=== PATIENT | male | born 1960 | race Caucasian/White ===

== ENCOUNTER 2018-08-08 17:54 | Emergency (ER) | payer BC, OTHER ==
--- NOTE | 2018-08-08 18:16 | PDOC ---
Rapid Medical Evaluation Chief Complaint: Pain Time Seen by Provider: 08/08/18 18:14 Medical Evaluation: Allergies Allergy/AdvReac Type Severity Reaction Status Date / Time No Known Allergies Allergy Verified 10/10/15 07:42 08/08/18 18:14 I did a brief in person evaluation on this patient. CC: Abdominal pain HPI: abd pain x 3 weeks. No hx of abd surgeries. Pt states he was febrile at home. PE: Skin: Clear Lungs: Clear Heart:RRR Abd: soft, tender on the left side of the abdomen. MS: Moves all extremities without difficulty Neuro: alert Psych: appropriate affect. I have ordered: abd protocol Pt will proceed to main ED for further evaluation. Discharge Disposition - Diagnosis Abdominal pain Qualifiers: Abdominal location: left lower quadrant Qualified Code(s): R10.32 - Left lower quadrant pain - Referrals - Patient Instructions - Post Discharge Activity
[2018-08-08 18:17] VITALS: BMI 37.3
[2018-08-08 19:21] LABS: BASO % 0.2 % (0-2.0); HEMOGLOBIN 16.4 GM/dL (11.7-16.9); LYMPH % 7.5 % (8-40); MCH 30.2 pg (25.7-33.7); MCHC 33.6 g/dl (32.0-35.9); MEAN CELL VOLUME 89.8 fl (80-96); MEAN PLT VOLUME 9.1 fl (7.5-11.1); MONO % 5.4 % (3.8-10.2); NEUT % 85.9 % (42.8-82.8); PLATELET COUNT 267 K/MM3 (134-434); RBC 5.45 M/mm3 (4.00-5.60); RDW 13.6 % (11.9-15.9); WHITE BLOOD COUNT 13.9 K/mm3 (4.0-10.0)
[2018-08-08 19:49] LABS: ALK PHOS 85 U/L (45-117); ANION GAP 8 MMOL/L (8-16); BILIRUBIN,TOTAL 1.6 mg/dL (0.2-1); BLOOD UREA NITROGEN 21 mg/dL (7-18); CALCIUM 8.9 mg/dL (8.5-10.1); CHLORIDE 104 mmol/L (98-107); CO2 27 mmol/L (21-32); CREATININE 0.9 mg/dL (0.55-1.3); GLUCOSE,RANDOM 107 mg/dL (74-106); LIPASE 109 U/L (73-393); POTASSIUM 4.4 mmol/L (3.5-5.1); SGOT/AST 30 U/L (15-37); SGPT/ALT 37 U/L (13-61); SODIUM 139 mmol/L (136-145); TOT PROT 7.8 g/dl (6.4-8.2)
--- NOTE | 2018-08-08 22:13 | PDOC ---
*Physical Exam - Vital Signs Last Vital Signs Temp Pulse Resp BP Pulse Ox 99.7 F H 94 H 16 114/78 97 08/08/18 18:15 08/08/18 18:15 08/08/18 18:15 08/08/18 18:15 08/08/18 18:15 ED Treatment Course - LABORATORY CBC & Chemistry Diagram: 08/08/18 18:55 08/08/18 18:56 - ADDITIONAL ORDERS Additional order review: Laboratory Results 08/08/18 18:56 Sodium 139 Potassium 4.4 Chloride 104 Carbon Dioxide 27 Anion Gap 8 BUN 21 H Creatinine 0.9 Creat Clearance w eGFR 86.37 Random Glucose 107 H Calcium 8.9 Total Bilirubin 1.6 H AST 30 ALT 37 Alkaline Phosphatase 85 Total Protein 7.8 Albumin 4.0 Lipase 109 08/08/18 18:55 RBC 5.45 MCV 89.8 MCHC 33.6 RDW 13.6 MPV 9.1 Neutrophils % 85.9 H Lymphocytes % 7.5 L D Monocytes % 5.4 Eosinophils % 1.0 Basophils % 0.2 Medical Decision Making - Medical Decision Making 08/08/18 22:11 Patient seen by the advanced practice provider under my direct supervision. Ancillary testing reviewed as necessary. I agree with plan as outlined by the advanced practice provider. *DC/Admit/Observation/Transfer Diagnosis at time of Disposition: Abdominal pain Qualifiers: Abdominal location: left lower quadrant Qualified Code(s): R10.32 - Left lower quadrant pain - Discharge Dispostion Condition at time of disposition: Stable - Referrals Referrals: Rey Campos MD [Primary Care Provider] - - Patient Instructions - Post Discharge Activity
[2018-08-08] MEDS ORDERED: SODIUM CHLORIDE 1,000 ML IV STA (22:17)
--- NOTE | 2018-08-08 22:19 | PDOC ---
History of Present Illness - General Chief Complaint: Pain Stated Complaint: SENT BY FOR CAT SCAN Time Seen by Provider: 08/08/18 18:14 - History of Present Illness Initial Comments: 08/08/18 22:15 58 year old male with pain to the abdomen for x 2.5 weeks ago with bilious vomiting today. patient reports that he was on a special diet for weight loss ( high protein diet) now off diet. pmhx: hypertension Past History - Past Medical History Allergies/Adverse Reactions: Allergies Allergy/AdvReac Type Severity Reaction Status Date / Time No Known Allergies Allergy Verified 10/10/15 07:42 Home Medications: Ambulatory Orders Atorvastatin Ca [Lipitor] 10 mg PO HS 09/16/15 Dulaglutide [Trulicity] 1.5 mg SQ WEEKLY 09/16/15 Escitalopram Oxalate [Lexapro -] 10 mg PO DAILY 09/16/15 Hydrochlorothiazide [Hctz -] 12.5 mg PO DAILY 09/16/15 Nebivolol HCl [Bystolic] 10 mg PO DAILY 09/16/15 Zolpidem Tartrate 5 mg PO ASDIR 09/16/15 metFORMIN HCL [Metformin ER Osmotic] 1,000 mg PO BID 09/16/15 Naproxen Sodium [Aleve] 220 mg PO ASDIR #0 09/17/15 Aspirin [Aspirin EC] 81 mg PO DAILY 10/08/15 Oxycodone HCl/Acetaminophen [Percocet 5-325 mg Tablet] 1 - 2 tab PO Q6H #20 tablet MDD 8 10/10/15 Anemia: No Asthma: No Cancer: No Cardiac Disorders: No CVA: No COPD: No CHF: No Dementia: No Diabetes: Yes GI Disorders: No Disorders: No HTN: No Hypercholesterolemia: No Liver Disease: No Seizures: No Thyroid Disease: No - Surgical History Abdominal Surgery: No Appendectomy: No Cardiac Surgery: No Cholecystectomy: No Lung Surgery: No Neurologic Surgery: No Orthopedic Surgery: Yes (RIGHT ELBOW RADIAL HEAD REATTACHMENT, OPEN LEFT SHOULDER RTC,BILAT KNEE AR) - Immunization History Immunization Up to Date: No - Suicide/Smoking/Psychosocial Hx Smoking Status: Yes Smoking History: Current some day smoker Have you smoked in the past 12 months: Yes Number of Cigarettes Smoked Daily: 2 Cigars Per Day: 2 Information on smoking cessation initiated: No 'Breaking Loose' booklet given: 10/10/15 Hx Alcohol Use: No Drug/Substance Use Hx: No Substance Use Type: None Hx Substance Use Treatment: No Review of Systems - Review of Systems Able to Perform ROS?: Yes Is the patient limited Georgian proficient: No Constitutional: Yes: Fever ABD/GI: Yes: Nausea, Vomiting *Physical Exam - Vital Signs Last Vital Signs Temp Pulse Resp BP Pulse Ox 99.7 F H 94 H 16 114/78 97 08/08/18 18:15 08/08/18 18:15 08/08/18 18:15 08/08/18 18:15 08/08/18 18:15 - Physical Exam General Appearance: Yes: Appropriately Dressed Respiratory/Chest: positive: Lungs Clear, Normal Breath Sounds Cardiovascular: positive: Regular Rate, Tachycardia Gastrointestinal/Abdominal: positive: Normal Bowel Sounds, Tender (LUQ/ LLQ pain ), Soft Musculoskeletal: positive: Normal Inspection. negative: CVA Tenderness Extremity: positive: Normal Capillary Refill, Normal Inspection, Normal Range of Motion Neurologic: positive: Fully Oriented, Alert ED Treatment Course - LABORATORY CBC & Chemistry Diagram: 08/08/18 18:55 08/08/18 18:56 - ADDITIONAL ORDERS Additional order review: Laboratory Results 08/08/18 18:56 Sodium 139 Potassium 4.4 Chloride 104 Carbon Dioxide 27 Anion Gap 8 BUN 21 H Creatinine 0.9 Creat Clearance w eGFR 86.37 Random Glucose 107 H Calcium 8.9 Total Bilirubin 1.6 H AST 30 ALT 37 Alkaline Phosphatase 85 Total Protein 7.8 Albumin 4.0 Lipase 109 08/08/18 18:55 RBC 5.45 MCV 89.8 MCHC 33.6 RDW 13.6 MPV 9.1 Neutrophils % 85.9 H Lymphocytes % 7.5 L D Monocytes % 5.4 Eosinophils % 1.0 Basophils % 0.2 - RADIOLOGY Radiology Studies Ordered: Category Date Time Status ABDOMEN & PELVIS CT WITH CONTR [CT] Stat CT Scan 08/08/18 22:14 Ordered Progress Note - Progress Note Progress Note: A: abdominal pain P: labs CTAP: cholelithiaisis likely enteritis? ABDominal US. cholethiasis Medical Decision Making - Medical Decision Making 08/09/18 02:17 Abdominal US: Cholelithiasis Mild hepatomegaly with fatty infiltration *DC/Admit/Observation/Transfer Diagnosis at time of Disposition: Abdominal pain Qualifiers: Abdominal location: left lower quadrant Qualified Code(s): R10.32 - Left lower quadrant pain - Discharge Dispostion Disposition: HOME Condition at time of disposition: Stable - Referrals Referrals: Rey Campos MD [Primary Care Provider] - Call tomorrow - Patient Instructions Printed Discharge Instructions: DI for Abdominal Pain-Adult Additional Instructions: Drink plenty of fluids. Please follow-up with your primary doctor. Return to the emergency room for any worsening symptoms. - Post Discharge Activity Forms/Work/School Notes: Back to Work
[2018-08-08 22:47] LABS: URINE APPEARANCE CLEAR; URINE BILIRUBIN NEGATIVE (NEGATIVE); URINE COLOR YELLOW; URINE GLUCOSE (UA) NEGATIVE (NEGATIVE); URINE KETONE TRACE (NEGATIVE); URINE LEUK ESTERASE NEGATIVE (NEGATIVE); URINE NITRITE NEGATIVE (NEGATIVE); URINE PROTEIN NEGATIVE (NEGATIVE); URINE UROBILINOGEN 0.2 mg/dL (0.2-1.0)
[2018-08-08] MEDS ORDERED: ONDANSETRON 4 MG/2 ML VIAL IVPUSH ONE (23:35)
[2018-08-09] MEDS ORDERED: ONDANSETRON 4 MG/2 ML VIAL ONE (00:55)
[2018-08-09] MEDS ORDERED: ACETAMINOPHEN 1000 MG/100 ML VIAL (NON FORMULARY) IVPB ONE (02:00)
[2018-08-09] MEDS ORDERED: ACETAMINOPHEN INJECTION 100 ML IVPB ONE (02:29)
[2018-08-09 02:41] VITALS: PULSE 91; TEMP 99.1
[2018-08-09] MEDS ORDERED: METOCLOPRAMIDE HCL INJECTION 10 MG/2 ML VIAL IVPB ONE (02:57)
[2018-08-09] MEDS ORDERED: METOCLOPRAMIDE HCL INJECTION 10 MG/2 ML VIAL ONE (03:06)
[2018-08-09 04:00] VITALS: BP 105/60
== END 2018-08-09 04:00 | disposition home or self-care (01) ==
LOC: JER 17:54
PROC: 3E0337Z Introduction of Electrolytic and Water Balance Substance into Peripheral Vein, Percutaneous Approach (ICD-10-PCS; principal; 2018-08-08)
PROC: 3E033GC Introduction of Other Therapeutic Substance into Peripheral Vein, Percutaneous Approach (ICD-10-PCS; 2018-08-08)
PROC: 3E033GC Introduction of Other Therapeutic Substance into Peripheral Vein, Percutaneous Approach (ICD-10-PCS; 2018-08-08)
PROC: 3E033NZ Introduction of Analgesics, Hypnotics, Sedatives into Peripheral Vein, Percutaneous Approach (ICD-10-PCS; 2018-08-08)
DX: R10.32 Left lower quadrant pain (principal); K80.20 Calculus of gallbladder without cholecystitis without obstruction; E11.9 Type 2 diabetes mellitus without complications; Z79.84 Long term (current) use of oral hypoglycemic drugs
CPT/HCPCS: 36415; 74177-TC; 76705-TC; 80053; 81003; 83605; 83690; 85025; 87040; 99283-25; J0131; J7030

== ENCOUNTER 2018-12-22 06:28 | Day surgery (SDC) | payer OTHER ==
[2018-12-11 14:39] VITALS: BMI 39.3
[~2018-12-22 06:28] MED LIST: CELECOXIB 200 MG CAPSULE PO ONE; ROPIVICAINE 0.2%/MORPH PF/KETOROLAC - 51ML DISP.SYRINGE IA ONE; TRANEXAMIC ACID 1000 MG/10 ML VIAL IVPUSH ONE
[2018-12-22] MEDS ORDERED: MIDAZOLAM HCL 2 MG/2 ML SINGLE DOSE VIAL ONE ×2 (07:04→08:18)
[2018-12-22] MEDS ORDERED: ROPIVACAINE HCL 0.5% 30ML VIAL ONE (07:04)
[2018-12-22] MEDS ORDERED: BUPIVACAINE HCL/PF 0.5% (5MG/ML) 10 ML VIAL ONE (07:11)
[2018-12-22] MEDS ORDERED: ONDANSETRON 4 MG/2 ML VIAL ONE (07:13)
[2018-12-22] MEDS ORDERED: DEXAMETHASONE SOD PHOSPHATE 4 MG/1 ML VIAL ONE (07:13)
[2018-12-22] MEDS ORDERED: KETOROLAC TROMETHAMINE 30 MG/1 ML VIAL ONE (07:13)
[2018-12-22] MEDS ORDERED: ceFAZolin SODIUM 1 GM VIAL ONE ×3 (07:13→08:00)
[2018-12-22] MEDS ORDERED: PROPOFOL 20 ML ONE ×2 (07:14)
[2018-12-22] MEDS ORDERED: SUCCINYLCHOLINE CHLORIDE 200 MG/10 ML SYRINGE ONE (07:14)
[2018-12-22] MEDS ORDERED: VANCOMYCIN 1,000 MG VIAL (RESTRICTED TO ID ONLY) ONE (07:18)
[2018-12-22] MEDS ORDERED: GELATIN, ABSORBABLE 12-7MM EACH SPONGE TP ONE ×3 (07:39→09:11)
[2018-12-22] MEDS ORDERED: THROMBIN (RECOMBINANT) 5,000 UNIT VIAL TP ONE (07:39)
[2018-12-22] MEDS ORDERED: CEFAZOLIN 3 GM in DEXTROSE 5%-WATER - 50 ML IVPB ONE (08:00)
--- NOTE | 2018-12-22 08:00 | HP ---
Satellite [facility] - Chief Complaint Chief Complaint: left knee pain - Past Medical History Allergies/Adverse Reactions: Allergies Allergy/AdvReac Type Severity Reaction Status Date / Time No Known Allergies Allergy Verified 12/11/18 14:24 - Current Medications Current Medications: Home Medications Medication Instructions Recorded Atorvastatin Ca [Lipitor] 10 mg PO HS 09/16/15 Dulaglutide [Trulicity] 1.5 mg SQ WEEKLY 09/16/15 Escitalopram Oxalate [Lexapro -] 10 mg PO DAILY 09/16/15 Nebivolol HCl [Bystolic] 10 mg PO BID 09/16/15 Zolpidem Tartrate 5 mg PO ASDIR 09/16/15 metFORMIN HCL [Metformin ER 1,000 mg PO BID 09/16/15 Osmotic] Naproxen Sodium [Aleve] 220 mg PO ASDIR #0 09/17/15 Linagliptin [Tradjenta] 5 mg PO DAILY 12/11/18 Ibuprofen 400 mg PO ASDIR PRN 12/22/18 Satellite Physical Exam - Physical Examination Vital Signs: Vital Signs Period Temp Pulse Resp BP Sys/Elias Pulse Ox Last 24 Hr 99.3 F 88 18 118/78 96 General Appearance: Well Nourished, Well Developed, Alert & Oriented x3 ENT: Clear Lung: Normal air movement Heart: Regular rate & rhythm Extremities: Other (left knee- + swelling, + ttp medially, decr rom, nvi, xrays show grade 4 medial djd) Neurological: Intact, Alert, Oriented Satellite Impression/Plan - Impression/Plan Impression: left knee medial djd Operative Procedure: left medial joel ukr Date to be Performed: 12/22/18
[2018-12-22] MEDS ORDERED: THROMBIN (BOVINE) 5,000 UNIT VIAL TP ONE (09:11)
[2018-12-22] MEDS ORDERED: ROPIVICAINE 0.2%/MORPH PF/KETOROLAC - 51ML DISP.SYRINGE IA ONE (09:25)
[2018-12-22] MEDS ORDERED: MAG HYDROX/AL HYDROX/SIMETH 30 ML UNIT-DOSE CUP PO PRN (09:49)
--- NOTE | 2018-12-22 09:52 | OP ---
Operative Note - Note: Operative Date: 12/22/18 (jude) Pre-Operative Diagnosis: left knee medial djd Operation: left medial joel ukr Post-Operative Diagnosis: Same as Pre-op Surgeon: Dakota Thompson Tint Layer: Manoj Burns Anesthesiologist/WARP DRAWER: Jason Dumont Anesthesia: Spinal, Local Specimens Removed: bone fragments Estimated Blood Loss (mls): 100 Operative Report Dictated: Yes
[2018-12-22] MEDS ORDERED: ESCITALOPRAM OXALATE 10 MG TABLET (FP) PO SCH (10:00)
[2018-12-22] MEDS ORDERED: MULTIVITAMINS (DAILY MVI) TABLET (FP) PO SCH (10:00)
[2018-12-22] MEDS ORDERED: PATIENT'S OWN MEDICATION (NON-FORMULARY) (Dulaglutide [Trulicity] 1.5 MG) SQ SCH (10:00)
[2018-12-22] MEDS ORDERED: PATIENT'S OWN MEDICATION (NON-FORMULARY) (Linagliptin [Tradjenta] 5 MG) PO SCH (10:00)
[2018-12-22] MEDS ORDERED: PATIENT'S OWN MEDICATION (NON-FORMULARY) (Metformin Hcl [Metformin Er Osmotic] 1,000 MG) PO SCH (10:00)
[2018-12-22] MEDS ORDERED: LACTATED RINGERS SOLUTION 1,000 ML IV SCH (10:00)
[2018-12-22] MEDS ORDERED: PANTOPRAZOLE 40 MG TABLET (FP) PO SCH (10:00)
[2018-12-22] MEDS ORDERED: ONDANSETRON 4 MG/2 ML VIAL IVPUSH PRN (10:42)
[2018-12-22] MEDS ORDERED: oxyCODONE HCL 5 MG TABLET PO PRN (10:42)
[2018-12-22] MEDS ORDERED: PROMETHAZINE HCL 25 MG/1 ML VIAL IVPUSH PRN (10:42)
[2018-12-22] MEDS ORDERED: ACETAMINOPHEN 325 MG TABLET (FP) PO SCH (10:45)
[2018-12-22] MEDS ORDERED: INSULIN SLIDING SCALE (NOVOLOG) 1 VIAL SQ SCH (11:00)
--- NOTE | 2018-12-22 11:08 | SPEC ---
DATE OF OPERATION: 12/22/2018 PREOPERATIVE DIAGNOSIS: Degenerative joint disease, left knee. POSTOPERATIVE DIAGNOSIS: Degenerative joint disease, left knee. PROCEDURE: Left medial unicompartmental knee replacement with robotic-assisted navigation (MAKOplasty) and patelloplasty. SURGICAL ATTENDING: Dakota Thompson MD PUBLIC ADMINISTRATION TEACHER: GENESIS Veras ANESTHESIA: Regional and spinal. CLOSURE: Medial CHRISTINE components with a 7 femur, 7 tibia, 8 polyethylene; No. 1 Vicryl, fascia; 0 and 2-0, subcutaneous; 3-0 Monocryl subcuticular with skin glue for skin; 4-0 undyed Vicryl for pin sites. ESTIMATED BLOOD LOSS: Less than 50 mL. COMPLICATIONS: None. CONDITION: To recovery in stable condition. DESCRIPTION OF OPERATIVE PROCEDURE: Patient was taken to the operating room on December 22, 2018. Spinal and regional anesthesia was administered by the anesthesiologist. IV Kefzol and TXA were administered prophylactically prior to the case. A well-padded pneumatic tourniquet was placed on the left proximal thigh. The left lower extremity was prepped and draped in the usual sterile fashion. A 6- to 8-cm longitudinal incision over the medial side of the patella from mid patella to the tibial tubercle was incised and was deepened using Bovie cautery. An arthrotomy was then made just medial to the patellar tendon and the patella. Subperiosteal dissection was done on the anteromedial proximal tibia all the way back to the MCL. Partial fat pad excision was performed, exposing the medial compartment. Checkpoint was malleable at both the femur and the tibia. Using 2 stab incisions in the femur 1 handbreadth above the patella on the femur and 2 stab incisions 1 handbreadth below the tibial tubercle on the tibia, 2 threaded pins were drilled in parallel fashion from anterior to posterior, going through the proximal cortex and engaging the 2nd but not through the 2nd cortex. To these threaded pins were fastened navigation rays, 1 on the femur and 1 on the tibia. The knee was then registered with the navigation device with the center of the rotation of the hip, medial and lateral malleoli, and multiple points both on the femur and on the tibia. Excellent registration of less than 0.5 mm was obtained on both to ensure adequate registration. The navigation device ensured us to "pop the bubbles" both on the femur and the tibia and that was performed and passed registration. The knee was then thoroughly inspected to remove all osteophytes both on the femur and the tibia. Also, osteophytes on the trochlea and on the surface of the patella were removed as well. The knee was then stressed with valgus stress at 0, 30, 60, 90, and 120 degrees of flexion. This propagated a looseness/tightness graft. The virtual positions of the components were then optimized to ensure an excellent graft. The tracking also was optimized by manipulating the virtual position to ensure that the femoral component articulated with the central portion of the tibial component. The robot was then brought into the field and was registered. The robot was used to bur the bone on both the femur and the tibia as to the specifications of the components. The trial components were then applied on both the femur and the tibia with an appropriate polyethylene insert. The knee was taken through a range of motion and found to have full extension, full flexion, with excellent stability. Stressing the graft revealed an excellent looseness/tightness graft with the trial components in place. The trial components were removed. The knee was thoroughly irrigated with a copious amount of antibiotic irrigation. The real components were then cemented in using modern generation cement techniques with antibiotic cement and pressurization. After the cement was hardened, the knee was thoroughly inspected to remove out all excess cement. The real polyethylene insert was then clipped into place. Range of motion and stability were again assessed to be as they were with the trials. At this time, the pins and the checkpoints were removed. The knee was again thoroughly irrigated. The arthrotomy was closed with No. 1 Vicryl, 0 and 2-0 subcutaneous, and 3-0 Monocryl subcuticular with skin glue for the skin, 4-0 undyed Vicryl for the pin sites. Sterile pressure dressing was placed over the knee. Patient awakened from anesthesia and transferred to recovery in stable condition. No complications. Estimated blood loss negligible. X-rays postoperatively revealed excellent position of the components. Alondra [id number]
[2018-12-22] MEDS: oxyCODONE HCL 5 MG TABLET PO PRN ×2 (15:42→20:16)
[2018-12-22] MEDS: ceFAZolin SODIUM 1 GM VIAL IVPB SCH (15:46)
[2018-12-22] MEDS ORDERED: CEFAZOLIN 3 GM in DEXTROSE 5%-WATER - 50 ML IVPB SCH (16:00)
--- NOTE | 2018-12-22 17:15 | PN ---
Progress Note, Physician Chief Complaint: patient s/p Cait ambulating hallways bgm in 400's take metformin and trulicty at home - Current Medication List Current Medications: Active Medications Acetaminophen (Tylenol -) 650 mg PO Q6H [facility] Stop: 12/25/18 17:59 Al Hydroxide/Mg Hydroxide (Mylanta Oral Suspension -) 30 ml PO Q4H PRN PRN Reason: DYSPEPSIA Aspirin (Asa -) 325 mg PO DAILY@0800 [facility] Atorvastatin Calcium (Lipitor -) 10 mg PO HS [facility] Cefazolin Sodium (Ancef -) 3 gm IVPB Q8H [facility] Stop: 12/23/18 00:01 Last Admin: 12/22/18 15:46 Dose: 3 gm Escitalopram Oxalate (Lexapro -) 10 mg PO DAILY [facility] Fentanyl (Sublimaze Injection -) 50 mcg IVPUSH [id number] PRN PRN Reason: PAIN-PACU ORDER X 4 DOSES ONLY Last Admin: 12/22/18 11:09 Dose: 50 mcg Lactated Ringer's (Lactated Ringers Solution) 1,000 mls @ 125 mls/hr IV ASDIR [facility] Stop: 12/23/18 06:00 Insulin Aspart (Novolog Vial Sliding Scale -) 1 vial SQ [facility]; Protocol Last Admin: 12/22/18 15:45 Dose: Not Given Metformin HCl (Glucophage Xr -) 1,000 mg PO BIDI [facility] Last Admin: 12/22/18 15:46 Dose: 1,000 mg Multivitamins/Minerals/Vitamin C (Tab-A-Vit -) 1 tab PO DAILY [facility] Nebivolol (Bystolic -) 10 mg PO BID [facility] Non-Formulary Medication (Dulaglutide [Trulicity]) 1.5 mg SQ Mo [facility] Ondansetron HCl (Zofran Injection) 4 mg IVPUSH Q6H PRN PRN Reason: NAUSEA AND/OR VOMITING Oxycodone HCl (Roxicodone -) 5 mg PO Q3H PRN PRN Reason: PAIN LEVEL 1-5 Last Admin: 12/22/18 11:10 Dose: 5 mg Oxycodone HCl (Roxicodone -) 10 mg PO Q3H PRN PRN Reason: PAIN LEVEL 6-10 Last Admin: 12/22/18 15:42 Dose: 10 mg Oxycodone HCl (Oxycontin -) 10 mg PO BID [facility] Stop: 12/25/18 10:43 Pantoprazole Sodium (Protonix -) 40 mg PO DAILY [facility] Promethazine HCl (Phenergan Injection -) 12.5 mg IVPUSH Q6H PRN PRN Reason: NAUSEA-FOR RESCUE AFTER 15 MIN Senna/Docusate Sodium (Pericolace -) 2 tablet PO BID [facility] Sitagliptin Phosphate (Januvia -) 100 mg PO ACBK [facility] Zolpidem Tartrate (Ambien -) 5 mg PO HS PRN PRN Reason: INSOMNIA - Objective Vital Signs: Vital Signs Temperature 97.8 F 12/22/18 14:05 Pulse Rate 81 12/22/18 14:05 Respiratory Rate 17 12/22/18 14:05 Blood Pressure 114/65 12/22/18 14:05 O2 Sat by Pulse Oximetry (%) 94 L 12/22/18 14:06 Constitutional: Yes: Calm Cardiovascular: Yes: Regular Rate and Rhythm, S1, S2 Respiratory: Yes: CTA Bilaterally Gastrointestinal: Yes: Normal Bowel Sounds, Soft, Abdomen, Obese Extremities: Yes: Other (left knee dressing) Problem List - Problems (1) Diabetes Assessment/Plan: metfromin 1000mg po bid sliding scale adjusted Code(s): E11.9 - TYPE 2 DIABETES MELLITUS WITHOUT COMPLICATIONS Qualifiers: Diabetes mellitus type: type 2 (2) Left knee DJD Assessment/Plan: s/p Cait pain control dvt ppx Code(s): M17.12 - UNILATERAL PRIMARY OSTEOARTHRITIS, LEFT KNEE (3) HLD (hyperlipidemia) Assessment/Plan: statin Code(s): E78.5 - HYPERLIPIDEMIA, UNSPECIFIED
[2018-12-22] MEDS ORDERED: ACETAMINOPHEN 325 MG TABLET (FP) ONE (20:15)
[2018-12-22] MEDS: ACETAMINOPHEN 325 MG TABLET (FP) PO SCH (20:15)
[2018-12-22] MEDS: NEBIVOLOL 10 MG TABLET (FP) PO SCH (21:44)
[2018-12-22] MEDS: SENNOSIDES/DOCUSATE COMBO (SENNA PLUS) TABLET (UD) PO SCH (21:44)
[2018-12-22] MEDS: oxyCODONE HCL 10 MG SUSTAINED ACTING TABLET PO SCH (21:45)
[2018-12-22] MEDS: INSULIN SLIDING SCALE (NOVOLOG) 1 VIAL SQ SCH (21:51)
[2018-12-22] MEDS ORDERED: ZOLPIDEM TARTRATE 5 MG TABLET PO PRN (22:00)
[2018-12-22] MEDS ORDERED: ATORVASTATIN CA 10 MG TABLET (FP) PO SCH (22:00)
[2018-12-23] MEDS: ceFAZolin SODIUM 1 GM VIAL IVPB SCH (00:17)
[2018-12-23] MEDS: ACETAMINOPHEN 325 MG TABLET (FP) PO SCH ×2 (00:18→06:14)
[2018-12-23] MEDS: oxyCODONE HCL 5 MG TABLET PO PRN (05:30)
[2018-12-23] MEDS ORDERED: sitaGLIPtin PHOSPHATE 50 MG TABLET PO SCH (07:00)
[2018-12-23] MEDS: INSULIN SLIDING SCALE (NOVOLOG) 1 VIAL SQ SCH ×2 (07:19→11:54)
[2018-12-23] MEDS ORDERED: ASPIRIN 325 MG TABLET PO SCH (08:00)
[2018-12-23 09:34] VITALS: BP 122/70; PULSE 88; TEMP 97.9
[2018-12-23] MEDS: oxyCODONE HCL 10 MG SUSTAINED ACTING TABLET PO SCH (10:53)
[2018-12-23] MEDS: NEBIVOLOL 10 MG TABLET (FP) PO SCH ×2 (10:53→10:54)
[2018-12-23] MEDS: SENNOSIDES/DOCUSATE COMBO (SENNA PLUS) TABLET (UD) PO SCH (10:54)
[2018-12-23 11:25] LABS: BASO % 1.9 % (0-2.0); EOS % 0.7 % (0-4.5); HEMATOCRIT 46.4 % (35.4-49); HEMOGLOBIN 15.7 GM/dl (11.7-16.9); LYMPH % 11.3 % (8-40); MCH 30.4 pg (25.7-33.7); MCHC 33.8 g/dl (32.0-35.9); MEAN CELL VOLUME 89.8 fl (80-96); MEAN PLT VOLUME 8.9 fl (7.5-11.1); MONO % 8.3 % (3.8-10.2); NEUT % 77.8 % (42.8-82.8); PLATELET COUNT 334 K/MM3 (134-434); RBC 5.16 M/mm3 (4.00-5.60); RDW 12.3 % (11.9-15.9); WHITE BLOOD COUNT 19.3 K/mm3 (4.0-10.8)
[2018-12-23 11:54] LABS: ALBUMIN 3.9 g/dl (3.4-5.0); BILIRUBIN,TOTAL 1.3 mg/dl (0.2-1); CALCIUM 9.6 mg/dl (8.5-10); CREATININE 0.9 mg/dl (0.55-1.3); POTASSIUM 4.5 mmol/L (3.5-5.1); TOT PROT 7.1 g/dl (6.4-8.2)
== END 2018-12-23 12:26 | disposition home health service (06) ==
LOC: FM/S 06:28 → FASUSAT 06:28
PROVIDERS: ATTEND Orthopaedic Surgery
PROC: 8E0YXBZ Computer Assisted Procedure of Lower Extremity (ICD-10-PCS; 2018-12-22)
PROC: 8E0Y0CZ Robotic Assisted Procedure of Lower Extremity, Open Approach (ICD-10-PCS; 2018-12-22)
PROC: 0SRD0L9 Replacement of Left Knee Joint with Medial Unicondylar Synthetic Substitute, Cemented, Open Approach (ICD-10-PCS; principal; 2018-12-22 08:27)
DX: M17.12 Unilateral primary osteoarthritis, left knee (principal)
CPT/HCPCS: 20985; 27446; C1776; S2900; 36415; 73560-TC-LT-FY; 80053; 82962; 85025; 94760; 97116-GP; 97162-GP

== ENCOUNTER 2020-06-30 13:49 | Emergency (ER) | payer OTHER ==
[2020-06-30 14:27] VITALS: BMI 37.3
[2020-06-30] MEDS ORDERED: SODIUM CHLORIDE 1,000 ML IV STA ×2 (16:41→18:48)
[2020-06-30 17:37] LABS: BASO % 0.3 % (0-2.0); EOS % 0.4 % (0-4.5); HEMOGLOBIN 16.7 GM/dL (11.7-16.9); LYMPH % 8.6 % (8-40); MCH 29.8 pg (25.7-33.7); MEAN CELL VOLUME 87.7 fl (80-96); MEAN PLT VOLUME 9.6 fl (7.5-11.1); MONO % 5.2 % (3.8-10.2); NEUT % 85.5 % (42.8-82.8); PLATELET COUNT 258 K/MM3 (134-434); RBC 5.59 M/mm3 (4.00-5.60); RDW 12.7 % (11.9-15.9); WHITE BLOOD COUNT 14.5 K/mm3 (4.0-10.0)
[2020-06-30 17:51] LABS: CHLORIDE 95 mmol/L (98-107); POTASSIUM 4.8 mmol/L (3.5-5.1); SODIUM 131 mmol/L (136-145)
[2020-06-30 17:53] LABS: CALCIUM 9.7 mg/dL (8.5-10.1)
[2020-06-30 17:54] LABS: ALBUMIN 3.9 g/dl (3.4-5.0); ANION GAP 11 MMOL/L (8-16); BLOOD UREA NITROGEN 18.8 mg/dL (7-18); CO2 25 mmol/L (21-32); GLUCOSE,RANDOM 370 mg/dL (74-106)
[2020-06-30 17:57] LABS: CREATININE 1.3 mg/dL (0.55-1.3); SGOT/AST 17 U/L (15-37); SGPT/ALT 38 U/L (13-61)
[2020-06-30 17:58] LABS: BILIRUBIN,TOTAL 1.2 mg/dL (0.2-1)
[2020-06-30 17:59] LABS: TOT PROT 7.7 g/dl (6.4-8.2)
[2020-06-30 18:00] LABS: ALK PHOS 89 U/L (45-117)
[2020-06-30] MEDS ORDERED: SODIUM CHLORIDE 500 ML IV STA (18:49)
[2020-06-30 19:43] VITALS: BP 107/69; PULSE 74; TEMP 98
== END 2020-06-30 19:45 | disposition home or self-care (01) ==
LOC: JER 13:49
PROC: 3E0337Z Introduction of Electrolytic and Water Balance Substance into Peripheral Vein, Percutaneous Approach (ICD-10-PCS; principal; 2020-06-30)
PROC: 3E0337Z Introduction of Electrolytic and Water Balance Substance into Peripheral Vein, Percutaneous Approach (ICD-10-PCS; 2020-06-30)
PROC: 3E0337Z Introduction of Electrolytic and Water Balance Substance into Peripheral Vein, Percutaneous Approach (ICD-10-PCS; 2020-06-30)
DX: R42 Dizziness and giddiness (principal)
CPT/HCPCS: 36415; 71045-TC-FY; 80053; 82550; 82962; 84484; 85025; 93005; 93010; 99285-25

== ENCOUNTER 2022-03-19 00:41 | Inpatient (IN) | payer BC, OTHER ==
[2022-03-19] MEDS ORDERED: SODIUM CHLORIDE 0.9% 500 ML INFUS.BAG IV ONE (01:13)
[2022-03-19 01:32] LABS: BASO % 0.8 % (0-2.0); HEMATOCRIT 45.9 % (35.4-49); HEMOGLOBIN 15.5 GM/dL (11.7-16.9); LYMPH % 14.1 % (8-40); MCHC 33.8 g/dl (32.0-35.9); MEAN CELL VOLUME 88.5 fl (80-96); MEAN PLT VOLUME 8.5 fl (7.5-11.1); MONO % 13.1 % (3.8-10.2); PLATELET COUNT 301 10^3/uL (134-434); RBC 5.18 M/mm3 (4.00-5.60); RDW 13.1 % (11.9-15.9); WHITE BLOOD COUNT 12.4 K/mm3 (4.0-10.0)
[2022-03-19 01:42] LABS: INR 1.21 (0.83-1.09)
[2022-03-19 01:45] LABS: ACTIVATED PTT 29.8 SECONDS (25.2-36.5)
[2022-03-19 01:56] LABS: BLOOD UREA NITROGEN 13.1 mg/dL (7-18); CALCIUM 8.4 mg/dL (8.5-10.1); MAGNESIUM 1.7 mg/dL (1.8-2.4)
[2022-03-19 01:57] LABS: ALBUMIN 3.4 g/dl (3.4-5.0)
[2022-03-19 02:01] LABS: BILIRUBIN,TOTAL 0.9 mg/dL (0.2-1); TOT PROT 7.2 g/dl (6.4-8.2)
[2022-03-19] MEDS ORDERED: MAGNESIUM SULF 50% (8.12 MEQ/2 ML-1 GM VIAL) IVPB ONE (05:11)
[2022-03-19] MEDS ORDERED: MAGNESIUM 1GM/D5W - 1 GM/100 ML IVPB IVPB ONE (05:23)
[2022-03-19] MEDS ORDERED: ACETAMINOPHEN 325 MG TABLET (FP) PO PRN (05:43)
[2022-03-19] MEDS ORDERED: DOCUSATE SODIUM 100 MG CAPSULE (FP) PO PRN (05:43)
[2022-03-19] MEDS ORDERED: DEXAMETHASONE SOD PHOSPHATE 10 MG/1 ML VIAL IVPUSH ONE (05:54)
[2022-03-19] MEDS ORDERED: REMDESIVIR 200 MG in SODIUM CHLORIDE 250 ML IVPB ONE (05:56)
[2022-03-19] MEDS ORDERED: DEXAMETHASONE SOD PHOSPHATE 10 MG/1 ML VIAL ONE (06:00)
[2022-03-19] MEDS ORDERED: BENZOCAINE/MENTH/CETYLPYRD CL 1 EACH LOZENGE MM PRN (06:02)
[2022-03-19] MEDS ORDERED: ALBUTEROL SO4 HFA INHALER IH PRN (06:59)
[2022-03-19] MEDS: INSULIN SLIDING SCALE (NOVOLOG) 1 VIAL SQ SCH ×4 (08:08→21:38)
[2022-03-19] MEDS ORDERED: ENOXAPARIN NA (PORCINE) 40 MG/0.4 ML DISP.SYRIN SQ ONE (09:58)
[2022-03-19] MEDS: ENOXAPARIN NA (PORCINE) 40 MG/0.4 ML DISP.SYRIN SQ SCH (10:00)
[2022-03-19 11:47] LABS: HEMATOCRIT 46.4 % (35.4-49); HEMOGLOBIN 15.9 GM/dL (11.7-16.9); MCH 30.4 pg (25.7-33.7); MCHC 34.3 g/dl (32.0-35.9); MEAN CELL VOLUME 88.7 fl (80-96); MEAN PLT VOLUME 8.5 fl (7.5-11.1); PLATELET COUNT 269 10^3/uL (134-434); RBC 5.23 M/mm3 (4.00-5.60); RDW 12.9 % (11.9-15.9); WHITE BLOOD COUNT 13.3 K/mm3 (4.0-10.0)
[2022-03-19 12:24] LABS: ERYTHROCYTE SEDIMENTATION RATE 16 mm/hr (0-20)
[2022-03-19 12:31] LABS: ANISOCYTOSIS 0; HELMET CELLS 0; HOWELL-JOLLY BODIES 0; MACROCYTOSIS 0; OVALOCYTE 0; ROULEAU 0; SICKELED CELLS 0; TARGET CELLS 0; TEAR DROP CELLS 0; TOXIC GRANULATION 0
[2022-03-19] MEDS ORDERED: LACTATED RINGERS SOLUTION 1,000 ML/1,000 ML INFUS.BAG IV SCH (15:15)
[2022-03-19 16:27] VITALS: BMI 39.4
[2022-03-19] MEDS: NEBIVOLOL 10 MG TABLET (FP) PO SCH (21:41)
[2022-03-20] MEDS: INSULIN SLIDING SCALE (NOVOLOG) 1 VIAL SQ SCH ×4 (06:45→22:22)
[2022-03-20] MEDS: NEBIVOLOL 10 MG TABLET (FP) PO SCH ×2 (09:05→22:18)
[2022-03-20] MEDS: TAMSULOSIN HCL 0.4 MG CAP PO SCH (09:05)
[2022-03-20] MEDS: DEXAMETHASONE SOD PHOSPHATE 10 MG/1 ML VIAL IVPB SCH (09:06)
[2022-03-20] MEDS: ENOXAPARIN NA (PORCINE) 40 MG/0.4 ML DISP.SYRIN SQ SCH (09:06)
[2022-03-20] MEDS: NICOTINE 7 MG/24 HOURS TOPICAL PATCH TD SCH (09:22)
[2022-03-20] MEDS: REMDESIVIR 100 MG in SODIUM CHLORIDE 250 ML IVPB SCH (10:41)
[2022-03-20 11:31] LABS: BASO % 0.1 % (0-2.0); EOS % 0.2 % (0-4.5); HEMATOCRIT 45.7 % (35.4-49); HEMOGLOBIN 15.3 GM/dL (11.7-16.9); LYMPH % 11.3 % (8-40); MCH 29.6 pg (25.7-33.7); MCHC 33.5 g/dl (32.0-35.9); MEAN CELL VOLUME 88.5 fl (80-96); MEAN PLT VOLUME 9.1 fl (7.5-11.1); MONO % 8.9 % (3.8-10.2); NEUT % 79.5 % (42.8-82.8); PLATELET COUNT 317 10^3/uL (134-434); RBC 5.17 M/mm3 (4.00-5.60); RDW 12.9 % (11.9-15.9); WHITE BLOOD COUNT 14.7 K/mm3 (4.0-10.0)
[2022-03-20] MEDS ORDERED: INSULIN (NOVOLOG) ASPART 100 UNITS/ML 10ML VIAL ONE (11:37)
[2022-03-20 11:42] LABS: CALCIUM 8.9 mg/dL (8.5-10.1)
[2022-03-20 11:43] LABS: BLOOD UREA NITROGEN 14.1 mg/dL (7-18); MAGNESIUM 2.1 mg/dL (1.8-2.4)
[2022-03-20 11:46] LABS: CREATININE 0.8 mg/dL (0.55-1.3); PHOSPHOROUS 2.8 mg/dL (2.5-4.9)
[2022-03-21] MEDS: guaiFENesin/D-M SUGAR-FREE/ACLHOL-FREE 118 ML BOTTLE PO PRN ×2 (03:32→21:24)
[2022-03-21] MEDS: INSULIN SLIDING SCALE (NOVOLOG) 1 VIAL SQ SCH ×4 (08:11→21:32)
[2022-03-21 10:34] LABS: BASO % 0.1 % (0-2.0); EOS % 0.1 % (0-4.5); HEMATOCRIT 44.9 % (35.4-49); HEMOGLOBIN 15.1 GM/dL (11.7-16.9); LYMPH % 13.6 % (8-40); MCH 29.8 pg (25.7-33.7); MCHC 33.7 g/dl (32.0-35.9); MEAN CELL VOLUME 88.5 fl (80-96); MEAN PLT VOLUME 8.9 fl (7.5-11.1); MONO % 8.8 % (3.8-10.2); NEUT % 77.4 % (42.8-82.8); PLATELET COUNT 306 10^3/uL (134-434); RBC 5.07 M/mm3 (4.00-5.60); RDW 12.8 % (11.9-15.9); WHITE BLOOD COUNT 14.1 K/mm3 (4.0-10.0)
[2022-03-21] MEDS: ENOXAPARIN NA (PORCINE) 40 MG/0.4 ML DISP.SYRIN SQ SCH (10:38)
[2022-03-21] MEDS: TAMSULOSIN HCL 0.4 MG CAP PO SCH (10:38)
[2022-03-21] MEDS: DEXAMETHASONE SOD PHOSPHATE 10 MG/1 ML VIAL IVPB SCH (10:38)
[2022-03-21] MEDS: NICOTINE 7 MG/24 HOURS TOPICAL PATCH TD SCH (10:39)
[2022-03-21] MEDS: NEBIVOLOL 10 MG TABLET (FP) PO SCH ×2 (10:39→21:23)
[2022-03-21 11:03] LABS: CALCIUM 8.6 mg/dL (8.5-10.1); MAGNESIUM 1.9 mg/dL (1.8-2.4)
[2022-03-21 11:04] LABS: BLOOD UREA NITROGEN 18.1 mg/dL (7-18)
[2022-03-21 11:07] LABS: CREATININE 0.9 mg/dL (0.55-1.3); PHOSPHOROUS 3.1 mg/dL (2.5-4.9)
[2022-03-21] MEDS: REMDESIVIR 100 MG in SODIUM CHLORIDE 250 ML IVPB SCH (11:23)
[2022-03-21] MEDS: ATORVASTATIN CA 10 MG TABLET (FP) PO SCH (21:24)
[2022-03-22] MEDS: guaiFENesin/D-M SUGAR-FREE/ACLHOL-FREE 118 ML BOTTLE PO PRN ×2 (06:47→21:12)
[2022-03-22] MEDS: INSULIN SLIDING SCALE (NOVOLOG) 1 VIAL SQ SCH ×4 (06:47→21:23)
[2022-03-22 10:21] LABS: BASO % 0.2 % (0-2.0); EOS % 0.2 % (0-4.5); HEMATOCRIT 45.7 % (35.4-49); HEMOGLOBIN 15.5 GM/dL (11.7-16.9); LYMPH % 16.6 % (8-40); MCH 29.6 pg (25.7-33.7); MCHC 33.8 g/dl (32.0-35.9); MEAN CELL VOLUME 87.5 fl (80-96); MEAN PLT VOLUME 8.7 fl (7.5-11.1); MONO % 8.5 % (3.8-10.2); NEUT % 74.5 % (42.8-82.8); PLATELET COUNT 359 10^3/uL (134-434); RBC 5.22 M/mm3 (4.00-5.60); RDW 12.9 % (11.9-15.9)
[2022-03-22] MEDS: TAMSULOSIN HCL 0.4 MG CAP PO SCH (10:34)
[2022-03-22] MEDS: ESCITALOPRAM OXALATE 10 MG TABLET PO SCH (10:41)
[2022-03-22] MEDS: DEXAMETHASONE SOD PHOSPHATE 10 MG/1 ML VIAL IVPB SCH (10:41)
[2022-03-22] MEDS: REMDESIVIR 100 MG in SODIUM CHLORIDE 250 ML IVPB SCH (10:41)
[2022-03-22] MEDS: NICOTINE 7 MG/24 HOURS TOPICAL PATCH TD SCH (10:42)
[2022-03-22] MEDS: NEBIVOLOL 10 MG TABLET (FP) PO SCH ×2 (10:42→22:13)
[2022-03-22] MEDS: ENOXAPARIN NA (PORCINE) 40 MG/0.4 ML DISP.SYRIN SQ SCH (10:42)
[2022-03-22 12:05] LABS: CALCIUM 9.1 mg/dL (8.5-10.1)
[2022-03-22 12:08] LABS: CREATININE 0.9 mg/dL (0.55-1.3)
[2022-03-22 12:09] LABS: PHOSPHOROUS 3.4 mg/dL (2.5-4.9)
[2022-03-22 12:12] LABS: BLOOD UREA NITROGEN 17.5 mg/dL (7-18)
[2022-03-22] MEDS: ATORVASTATIN CA 10 MG TABLET (FP) PO SCH (21:17)
[2022-03-22 22:11] VITALS: RESP 20
[2022-03-23] MEDS: guaiFENesin/D-M SUGAR-FREE/ACLHOL-FREE 118 ML BOTTLE PO PRN (02:30)
[2022-03-23] MEDS: INSULIN SLIDING SCALE (NOVOLOG) 1 VIAL SQ SCH ×2 (06:01→12:21)
[2022-03-23] MEDS ORDERED: ATORVASTATIN CA 20 MG TABLET (FP) PO SCH (06:59)
[2022-03-23] MEDS: REMDESIVIR 100 MG in SODIUM CHLORIDE 250 ML IVPB SCH (10:43)
[2022-03-23] MEDS: ESCITALOPRAM OXALATE 10 MG TABLET PO SCH (10:43)
[2022-03-23] MEDS: NEBIVOLOL 10 MG TABLET (FP) PO SCH (10:43)
[2022-03-23] MEDS: DEXAMETHASONE SOD PHOSPHATE 10 MG/1 ML VIAL IVPB SCH (10:43)
[2022-03-23] MEDS: TAMSULOSIN HCL 0.4 MG CAP PO SCH (10:43)
[2022-03-23 10:44] LABS: HEMATOCRIT 48.5 % (35.4-49); HEMOGLOBIN 16.6 GM/dL (11.7-16.9); MCH 30.2 pg (25.7-33.7); MCHC 34.3 g/dl (32.0-35.9); MEAN CELL VOLUME 88.1 fl (80-96); MEAN PLT VOLUME 8.7 fl (7.5-11.1); PLATELET COUNT 400 10^3/uL (134-434); RDW 12.8 % (11.9-15.9); WHITE BLOOD COUNT 15.4 K/mm3 (4.0-10.0)
[2022-03-23] MEDS: ENOXAPARIN NA (PORCINE) 40 MG/0.4 ML DISP.SYRIN SQ SCH (10:44)
[2022-03-23] MEDS: NICOTINE 7 MG/24 HOURS TOPICAL PATCH TD SCH (10:44)
[2022-03-23 11:19] LABS: CALCIUM 9.4 mg/dL (8.5-10.1)
[2022-03-23 11:20] LABS: BLOOD UREA NITROGEN 22.2 mg/dL (7-18)
[2022-03-23 11:23] LABS: CREATININE 0.8 mg/dL (0.55-1.3); PHOSPHOROUS 3.7 mg/dL (2.5-4.9)
[2022-03-23 11:52] LABS: ANISOCYTOSIS 0; MACROCYTOSIS 0
[2022-03-23] MEDS ORDERED: INSULIN (NOVOLOG) ASPART 100 UNITS/ML 10ML VIAL ONE (12:11)
[2022-03-23 14:22] VITALS: BP 147/77; PULSE 80; TEMP 97.8
== END 2022-03-23 15:38 | disposition home or self-care (01) | DRG 177 ==
LOC: JER 00:41 → JERBED 05:27 → INTOOBSV 05:27 → OBSVTOIN 05:45 → J6S 15:10 → J8W 03-20 15:00
PROVIDERS: ADMIT Internal Medicine; ATTEND Internal Medicine
PROC: XW033E5 Introduction of Remdesivir Anti-infective into Peripheral Vein, Percutaneous Approach, New Technology Group 5 (ICD-10-PCS; principal; 2022-03-19)
PROC: 3E0333Z Introduction of Anti-inflammatory into Peripheral Vein, Percutaneous Approach (ICD-10-PCS; 2022-03-19)
DX: U07.1 COVID-19 (principal); J12.82 Pneumonia due to coronavirus disease 2019; R00.0 Tachycardia, unspecified; I10 Essential (primary) hypertension; E11.9 Type 2 diabetes mellitus without complications; G47.30 Sleep apnea, unspecified; R09.02 Hypoxemia; F17.210 Nicotine dependence, cigarettes, uncomplicated; E78.5 Hyperlipidemia, unspecified; M17.12 Unilateral primary osteoarthritis, left knee; K80.20 Calculus of gallbladder without cholecystitis without obstruction; Z91.14 Patient's other noncompliance with medication regimen
CPT/HCPCS: 0241U-QW; 36415; 71045-TC-FY; 71275-TC; 80048; 80053; 82550; 82728; 82962; 83036; 83615; 83735; 84100; 84484; 85025; 85379; 85610; 85651; 85730; 86140; 93005; 93010; 94010; 94761; 99285-25; C9399; G0378; J1100; Q9967

== ENCOUNTER 2023-02-21 14:15 | Emergency (ER) | payer BC ==
[2023-02-21 15:04] VITALS: BP 129/82; PULSE 81; RESP 19; TEMP 98.6; BMI 38.6
[2023-02-21] MEDS ORDERED: METHOCARBAMOL 750 MG TAB PO ONE (18:30)
[2023-02-21] MEDS ORDERED: METHOCARBAMOL 500 MG TABLET ONE (18:35)
[2023-02-21] MEDS ORDERED: LIDOCAINE 5% TOPICAL PATCH TP ONE (18:40)
[2023-02-21] MEDS ORDERED: KETOROLAC TROMETHAMINE 15 MG/ML VIAL IVPUSH ONE ×2 (18:40→23:38)
[2023-02-21] MEDS ORDERED: LIDOCAINE 4% PATCH TP ONE (18:48)
[2023-02-21] MEDS ORDERED: KETOROLAC TROMETHAMINE 15 MG/ML VIAL ONE (18:48)
[2023-02-21] MEDS: LIDOCAINE PATCH REMOVAL MC ONE ×2 (19:10→22:42)
[2023-02-21 19:32] LABS: URINE APPEARANCE CLEAR; URINE BILIRUBIN NEGATIVE (NEGATIVE); URINE COLOR YELLOW; URINE GLUCOSE (UA) NEGATIVE (NEGATIVE); URINE KETONE NEGATIVE (NEGATIVE); URINE LEUK ESTERASE NEGATIVE (NEGATIVE); URINE NITRITE NEGATIVE (NEGATIVE); URINE PROTEIN TRACE (NEGATIVE); URINE UROBILINOGEN 0.2 mg/dL (0.2-1.0)
[2023-02-21 19:35] LABS: BASO % 0.5 % (0-2.0); EOS % 1.7 % (0-4.5); HEMATOCRIT 49.4 % (35.4-49); HEMOGLOBIN 16.8 GM/dL (11.7-16.9); LYMPH % 21.9 % (8-40); MCH 29.6 pg (25.7-33.7); MCHC 34.1 g/dl (32.0-35.9); MEAN CELL VOLUME 86.9 fl (80-96); MEAN PLT VOLUME 8.5 fl (7.5-11.1); MONO % 7.6 % (3.8-10.2); NEUT % 68.3 % (42.8-82.8); PLATELET COUNT 373 10^3/uL (134-434); RBC 5.68 M/mm3 (4.00-5.60); RDW 13.2 % (11.9-15.9); WHITE BLOOD COUNT 13.6 K/mm3 (4.0-10.0)
[2023-02-21 19:48] LABS: INR 1.22 (0.83-1.09); PROTHROMBIN TIME (PATIENT) 14.1 SEC (9.7-13.0)
[2023-02-21 19:51] LABS: ACTIVATED PTT 30.1 SECONDS (25.2-36.5)
[2023-02-21 19:58] LABS: POTASSIUM 4.1 mmol/L (3.5-5.1)
[2023-02-21 20:00] LABS: CALCIUM 9.2 mg/dL (8.5-10.1)
[2023-02-21 20:01] LABS: BLOOD UREA NITROGEN 16.2 mg/dL (7-18)
[2023-02-21 20:04] LABS: CREATININE 0.8 mg/dL (0.55-1.3)
[2023-02-21 20:05] LABS: BILIRUBIN,TOTAL 1.7 mg/dL (0.2-1)
[2023-02-21 20:06] LABS: TOT PROT 7.8 g/dl (6.4-8.2)
[2023-02-21] MEDS ORDERED: SODIUM CHLORIDE 0.9% 1000 ML INFUS.BAG IV ONE (22:47)
[2023-02-21] MEDS ORDERED: ACETAMINOPHEN 1000 MG/100 ML BAG IVPB ONE (23:38)
[2023-02-21] MEDS ORDERED: KETOROLAC TROMETHAMINE 30 MG/1 ML VIAL ONE (23:42)
[2023-02-21] MEDS ORDERED: ACETAMINOPHEN INJECTION 100 ML IVPB ONE (23:42)
== END 2023-02-22 00:32 | disposition home or self-care (01) ==
LOC: JER 14:15
PROC: 3E0333Z Introduction of Anti-inflammatory into Peripheral Vein, Percutaneous Approach (ICD-10-PCS; 2023-02-21)
PROC: 3E0333Z Introduction of Anti-inflammatory into Peripheral Vein, Percutaneous Approach (ICD-10-PCS; 2023-02-21)
PROC: 3E033NZ Introduction of Analgesics, Hypnotics, Sedatives into Peripheral Vein, Percutaneous Approach (ICD-10-PCS; principal; 2023-02-22)
DX: M54.9 Dorsalgia, unspecified (principal); G89.29 Other chronic pain; K80.20 Calculus of gallbladder without cholecystitis without obstruction
CPT/HCPCS: 36415; 72128-TC; 72131-TC; 74176-TC; 76705-TC; 80053; 81003; 85025; 85610; 85730; 87086; 99285-25